=== PATIENT | female | born 1980 | race Native Hawaiian/Other Pacific Islander ===

== ENCOUNTER 2023-09-12 17:29 | Outpatient (CLI) | payer OTHER, SELFPAY ==
--- NOTE | 2023-09-12 17:58 | XR_ITS ---
WS: [id number] XR acute abdomen series [id number] REASON FOR EXAM: Constipation FINDINGS: No free air or retroperitoneal air. Unremarkable bowel gas pattern. No mass or significant calcification. IMPRESSION: No significant abnormality.
== END 2023-09-12 17:30 | disposition home or self-care (01) ==
LOC: RAD 17:37
PROVIDERS: PCP Nurse Practitioner Family; Visit Provider Nurse Practitioner Family
DX: K59.00 Constipation, unspecified (principal)
CPT/HCPCS: 74022